=== PATIENT | male | born 1965 | race Asian ===

== ENCOUNTER 2020-06-14 11:36 | Inpatient (IN) | payer OTHER ==
[~2020-06-14] VITALS: Ht 170.2 cm; Wt 81.2 kg
[~2020-06-14 11:36] MED LIST: NOR5 PO; OMEPRAZOLE D/R20 M1 PO; ZOCOR5 MG PO
--- NOTE | 2020-06-14 11:46 | NUR ---
PLACED IN BED 12 FOR EVAL.
[2020-06-14] MEDS ORDERED: ZESTRIL20 MG PO (11:55)
[2020-06-14] MEDS ORDERED: ASPIRIN ADULT L81 M3 PO (11:56)
[2020-06-14] MEDS ORDERED: METOPROLOL SUC100 M2 PO (11:56)
[2020-06-14] MEDS ORDERED: SIMVASTATIN20 M1 PO (11:57)
[2020-06-14] MEDS ORDERED: PRO40 PO (11:58)
--- NOTE | 2020-06-14 12:10 | NUR ---
DR BUTLER AT BEDSIDE WHILE PT DRANK A SIP OF WATER WITHOUT ANY COMPLICATIONS.
--- NOTE | 2020-06-14 13:52 | NUR ---
GAVE PT 1 CUP OF WATER, INSTRUCTED TO DRINK WHAT HE CAN TOLERATE, PT WAS ABLE TO DRINK ALL THE WATER WITH NO ISSUES, NO VOMITING.
--- NOTE | 2020-06-14 14:02 | NUR ---
PROVIDED APPLE SAUCE FOR PT PER DR BUTLER, INSTRUCTED PT TO REPORT ANY ISSUES CALL LIGHT WITHIN REACH, PT VERBALIZED UNDERSTANDING, EATING APPLESAUCE WITH NO DIFFICULTY AT THIS TIME.
[2020-06-14] MEDS ORDERED: ZOF4 PO (14:08)
[2020-06-14] MEDS ORDERED: PEPCID AC20 M2 PO (14:08)
--- NOTE | 2020-06-14 14:15 | NUR ---
UPON ENTERING THE ROOM, PT SITTING UP AND SAID HE FEELS LIKE VOMITING, STATES HE FEELS SOMETHING STUCK IN HIS THROAT, REPORTED TO DR. BUTLER,
--- NOTE | 2020-06-14 15:33 | NUR ---
PT TO OR VIA [facility] ACCOMPANIED BY TWO OR NURSES,
--- NOTE | 2020-06-14 16:01 | NUR ---
REPORT GIVEN TO LOLI SANTAMARIA TO RESUME CARE OF PT
[2020-06-14 16:57] VITALS: BP 143/84
--- NOTE | 2020-06-14 17:05 | NUR ---
RECEIVED PT FROM OR, S/P EGD BALLOON DILATION. PT ADMIT FOR FOOD IMPACTION, ESOPHAGEL STRITURE, PT IS A/O X4. VERBAL RESPONSIVE. DENY ANY PAIN AT THIS MOMENT. LUNG SOUND CLEAR BILATEARL, NO COUGH, NO SOB. PT IS ON 2L/MIN O2 VIA NC, PO2 99%, PT DENY ANY CHEST PAIN OR DISCOMFORT, BOWEL SOUND PRESENT ALL 4 QUADRANTS, NO DISTENTION, NO TENDER. PEDAL PULSE PRESENT BOTH FEET, NO EDEMA, IV AT RIGHT WRIST, NO LEAKING, NO INFILTRATION. ALL ADLS ASSIST, ALL NEED MET, CALL LIGHT IN REACH, WILL CONTINUE TO MONITOR.
--- NOTE | 2020-06-14 18:36 | NUR ---
Patient received awake and alert, noted to be somewhat lethargic. S/P esophageal dilation and recovering from sedation. Came in for throat pain admitted for food impaction versus esophageal stricture. Alert x4. Med surg patient. On 2 L nasal canula s/p sedation. Tolerating well. Continent Gi/. No weakness noted but lethargic from sedation still. Educated on calling for help when ambulating or moving around. Skin is intact. No complaints of pain or acute distress. Receivded with right wrist - patent and flushing well.
--- NOTE | 2020-06-14 21:37 | NUR ---
PATIENT VERBALIZE INTREST TO EAT AND TO GO HOME. DR. AWAN NOTIFIED. CLEAR LIQUID ORDERS GIVEN. NO ORDERS TO GO HOME AT THE MOMENT. UPDATED PATIENT ON PLAN OF CARE. PATIENT IN AGREEMENT. WILL CONTINUE TO MONITOR. CLEAR LIQUIDS PROVIDED.
[2020-06-14 21:41] VITALS: BP 143/89
[2020-06-15 06:13] LABS: ALBUMIN 3.6 g/dL (3.4-5.0); ALKALINE PHOSPHATASE 62 U/L (46-116); ALT/SGPT 62 U/L (16-63); AST/SGOT 26 U/L (15-37); BILIRUBIN TOTAL 1.31 mg/dL (0.20-1.00); CALCIUM 8.2 mg/dL (8.5-10.1); CARBON DIOXIDE 29.8 mmol/L (21-32); CHLORIDE SERUM 104 mmol/L (98-107); CREATININE SERUM 1.1 mg/dL (0.7-1.3); GFR1 > 60 mL/min; GLUCOSE SERUM 88 mg/dL (74-106); MAGNESIUM 2.3 mg/dL (1.8-2.4); POTASSIUM SERUM 4.2 mmol/L (3.5-5.1); SODIUM SERUM 142 mmol/L (136-145); TOTAL PROTEIN, SERUM 7.2 g/dL (6.4-8.2)
[2020-06-15 06:24] VITALS: BP 122/74
[2020-06-15 06:26] LABS: BASOPHIL % 0.4 % (0.2-1.5); PLATELET COUNT 176 x10^3mcL (152-348); RED CELL DISTRIBUTION WIDTH 13.5 % (12.1-16.2)
[2020-06-15 06:27] LABS: rbc morphology (normal/abnorm) NORMAL (NORMAL)
--- NOTE | 2020-06-15 06:40 | NUR ---
PATIENT TOLERATED CLEAR LIQUIDS WELL. NO ACUTE DISTRESS NOTED DURING NOC SHIFT. WILL ENDORSE CARE TO DAY SHIFT RN FOR CONTINUITY OF CARE.
--- NOTE | 2020-06-15 07:30 | NUR ---
RECIEVED PT FROM SURGICAL SPECIALIST NURSE. PT IS MED/SURG PT. PT BREATHING E/U ON RA. IN NO ACUTE RESPIRATORY DISTRESS. PT REPORTS NO CHEST PAIN AND ANY OTHER PAIN AT THIS MOMENT. PULSE PALPABLE, NO EDEMA NOTED. ABDOMEN IS FIRM ROUND NONTENDER TO PALPATE. NO WEAKNESS NOTED, PT IS AMBULATORY. SKIN IS INTACT. PT HAS NO FURTHER C/O AT THIS MOMENT. PT REQUEST AND ASKING FOR MORE INFORMATION ON DISCHARGE. WILL FOLLOW-UP WITH PT FOR MORE INFORMATION. IV TO LEFT ARM IS CDI, PATENT. NO FURTHER CONCERNS VOICED AT THIS TIME. BED IN LOWEST POSITION, CALL LIGHT IN REACH.
[2020-06-15 08:25] VITALS: BP 149/80
[2020-06-15 12:00] VITALS: BP 96/60
[2020-06-15 12:03] VITALS: BP 96/60
--- NOTE | 2020-06-15 13:00 | NUR ---
REVIEWED D/C PAPERWORK PT. WENT OVER NEW MEDICATIONS AND CONTINUED HOME MEDICATIONS. PT VERBALIZED UNDERSTANDING, ALL QUESTIONS/CONCERNS ADDRESSED. IV D/C. PT DISCHARGED WITH ALL BELONGINGS. PT WILL BE DRIVING HIMSELF HOME FROM THE HOSPITAL. PT IS A/OX4, BREATHING E/U ON RA. IN NO ACUTE RESPIRATORY DISTRESS AT THIS TIME. BED IN LOWEST POSITION, CALL LIGHT IN REACH.
== END 2020-06-15 13:15 | disposition home or self-care (01) | DRG 243 ==
LOC: ED 11:36 → MU 14:36
PROVIDERS: Internal Medicine Gastroenterology; ADMIT Hospitalist; ATTEND Hospitalist
PROC: 0DB68ZX Excision of Stomach, Via Natural or Artificial Opening Endoscopic, Diagnostic (ICD-10-PCS; 2020-06-14)
PROC: 0D758ZZ Dilation of Esophagus, Via Natural or Artificial Opening Endoscopic (ICD-10-PCS; principal; 2020-06-14 15:30)
PROC: 0DB28ZX Excision of Middle Esophagus, Via Natural or Artificial Opening Endoscopic, Diagnostic (ICD-10-PCS; 2020-06-14 15:30)
PROC: 0DB78ZX Excision of Stomach, Pylorus, Via Natural or Artificial Opening Endoscopic, Diagnostic (ICD-10-PCS; 2020-06-14 15:30)
DX: K22.2 Esophageal obstruction (principal); R13.10 Dysphagia, unspecified; Z20.822 Contact with and (suspected) exposure to COVID-19; K44.9 Diaphragmatic hernia without obstruction or gangrene; K21.00 Gastro-esophageal reflux disease with esophagitis, without bleeding; I10 Essential (primary) hypertension; E78.00 Pure hypercholesterolemia, unspecified; I25.10 Atherosclerotic heart disease of native coronary artery without angina pectoris; E78.5 Hyperlipidemia, unspecified; T17.228A Food in pharynx causing other injury, initial encounter; X58.XXXA Exposure to other specified factors, initial encounter; Y93.89 Activity, other specified; Z95.5 Presence of coronary angioplasty implant and graft; Y92.89 Other specified places as the place of occurrence of the external cause; Y99.8 Other external cause status
CPT/HCPCS: 43235; C1769; C9113; G0378; J1200; J1610; J1650; J2060; J2250; J2310; J2405; J3010; J3490; J7030; U0003